=== PATIENT | female | born 1975 | race Caucasian/White ===

== ENCOUNTER 2021-10-19 22:16 | Emergency (ER) | payer SELFPAY ==
[2021-10-19] MEDS ORDERED: Fluorescein Opthalmic Strip ONE (23:12)
[2021-10-20] MEDS ORDERED: Ketamine 50 MG/ML (10ML VIAL) ONE (00:01)
[2021-10-20] MEDS ORDERED: Proparacaine 0.5% Opth 15 ML BOT ONE (00:37)
== END 2021-10-20 00:48 | disposition home or self-care (01) ==
LOC: ERS 22:16
DX: T15.02XA Foreign body in cornea, left eye, initial encounter (principal); T15.01XA Foreign body in cornea, right eye, initial encounter; E11.9 Type 2 diabetes mellitus without complications; X58.XXXA Exposure to other specified factors, initial encounter
CPT/HCPCS: 65220